=== PATIENT | female | born 1970 | race Caucasian/White ===

== ENCOUNTER 2022-07-17 12:46 | Outpatient (CLI) | payer OTHER, SELFPAY ==
[2022-07-17 21:50] LABS: Albumin* 4.6 g/dL (3.3-5.0); Chloride* 103 mmol/L (96-114); Potassium* 4.2 mmol/L (3.6-5.1); Sodium* 141 mmol/L (135-149)
[2022-07-17 21:52] LABS: Carbon Dioxide* 31 mmol/L (20-32); Cholesterol* 251 mg/dL (90-199); Creatinine* 0.7 mg/dL (0.5-1.5); Estimated Glomerular Filt Rate 103 ml/min
[2022-07-17 21:53] LABS: Alanine Aminotransferase* 26 U/L (4-35); Alkaline Phosphatase* 88 U/L (40-150); Aspartate Amino Transferase* 24 U/L (12-35); Bilirubin Total* 0.7 mg/dL (0.1-1.5); Blood Urea Nitrogen* 13 mg/dL (7-30); Calcium* 9.3 mg/dL (8.4-10.6); Glucose* 103 mg/dL (60-115); Total Protein* 7.7 g/dL (6.0-8.3); Triglycerides* 110 mg/dL (40-149)
[2022-07-17 21:54] LABS: HDL Cholesterol* 63 mg/dL (>=50); LDL Cholesterol Calculated 166 mg/dL (<100)
[2022-07-17 22:49] LABS: Hepatitis C Virus Antibody* Negative (Negative)
== END 2022-07-17 12:47 | disposition home or self-care (01) ==
PROVIDERS: PCP Family Medicine; Visit Provider Family Medicine
DX: Z00.00 Encounter for general adult medical examination without abnormal findings (principal); E78.5 Hyperlipidemia, unspecified; E55.9 Vitamin D deficiency, unspecified; I10 Essential (primary) hypertension; Z11.59 Encounter for screening for other viral diseases
CPT/HCPCS: 80053; 80061; 86803

== ENCOUNTER 2023-08-20 12:37 | Outpatient (CLI) | payer OTHER, SELFPAY | END 2023-08-20 12:38 | disposition home or self-care (01) | PROVIDERS: PCP Family Medicine; Visit Provider Family Medicine | DX: Z00.00 Encounter for general adult medical examination without abnormal findings (principal); I10 Essential (primary) hypertension; E78.5 Hyperlipidemia, unspecified; E55.9 Vitamin D deficiency, unspecified; F41.9 Anxiety disorder, unspecified; Z13.1 Encounter for screening for diabetes mellitus | CPT/HCPCS: 80053; 80061; 82043; 82570 ==

== ENCOUNTER 2024-12-15 10:16 | Outpatient (CLI) | payer OTHER, SELFPAY | END 2024-12-15 10:17 | disposition home or self-care (01) | PROVIDERS: PCP Family Medicine; Visit Provider Family Medicine | DX: Z00.00 Encounter for general adult medical examination without abnormal findings (principal); I10 Essential (primary) hypertension; E55.9 Vitamin D deficiency, unspecified; M19.90 Unspecified osteoarthritis, unspecified site; Z82.61 Family history of arthritis | CPT/HCPCS: 80053; 80061; 82043; 82306; 82570; 86038; 86200; 86431 ==